=== PATIENT | female | born 1985 | race Caucasian/White ===

== ENCOUNTER 2022-12-29 17:19 | Emergency (ER) | payer OTHER ==
[~2022-12-29] VITALS: Ht 170.2 cm; Wt 119.3 kg
[~2022-12-29 17:19] MED LIST: ACETAMINOPHEN-1 EAC1 PO; ANAPROX DS550 MG PO; BISOPROLOL FUMA10 MG PO; DIAZEPAM5 MG PO; FLUOXETINE HCL20 MG PO; IBUPROFEN800 MG PO; IRON18 MG PO; MEDI-MECLIZINE25 MG PO; MELATONIN10 M2 PO; METFORMIN HCL1000 MG PO; METOPROLOL SUCC50 MG PO; NORCO 5-325 TA1 EACH PO; NORCO 7.5-3251 EACH PO; OMEPRAZOLE20 MG PO; POTASSIUM CHLO10 MEQ PO; VITAMIN D2000 UNIT PO; XANAX0.25 MG PO; XANAX0.5 MG PO; ZITHROMAX250 MG PO
--- OUTSIDE RECORDS SUMMARY | 2022-12-29 17:27 | XMS ---
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 Care History Medical/Surgical 10/25/2017 [facility] SEEN AT [facility] 10/18/17 FOR OVARIAN CYST DISCHARGED WITH RX FOR NORCO (7.5-325) Q6P PRN PAIN #20 TABLET PATIENT HAS BEEN WORKED UP MULTIPLE PLACES FOR THIS CHRONIC CONDITION.\T\nbsp; USE CAUTION WITH NARCOTICS. Radiation 10/25/2017 [facility] HAD CAT SCAN ABD September AT [place], [place] HAD ULTRSOUND September AT [facility] DENISE DELGADILLO E.D. VIS[facility] (12 MO.) [facility] 1 [facility] 1 [facility] [place] TOTAL 7 NOTE: Visits indicate total known visits. ED/UCC VISIT TRACKING (12 MO.) 12/29/2022 17:20 [facility] TYPE: Emergency COMPLAINT: - PANIC ATTACK 07/02/2022 16:05 [facility] TYPE: Emergency DIAGNOSES: - Diarrhea, unspecified - Palpitations - Fatigue - Palpitations 05/21/2022 13:28 [facility] TYPE: Emergency DIAGNOSES: - Dizziness and giddiness - Postural orthostatic tachycardia syndrome [POTS] - Dizziness - Palpitations - Weakness 05/18/2022 00:59 [facility] TYPE: Emergency DIAGNOSES: - Diaphragmatic hernia without obstruction or gangrene - Epigastric pain - Abdominal Pain - abdominal pain bloating - Bloated 05/08/2022 10:08 [facility] TYPE: Emergency DIAGNOSES: - Chest pain, unspecified - Chest Pain - Dizziness 04/27/2022 20:41 [facility] TYPE: Emergency COMPLAINT: - CHEST PAIN - EPIGASTRIC PAIN - CHEST PAIN UNSPECIFIED - ESSENTIAL PRIMARY HYPERTENSION DIAGNOSES: 0. Chest pain, unspecified 1. Right lower quadrant pain 5. Other chest pain 6. Essential (primary) hypertension 7. Other regional intermodal truck driver (current) drug therapy 8. Personal history of nicotine dependence 04/25/2022 11:46 [facility] TYPE: Emergency COMPLAINT: - Chest Pain_DIZZINESS/CHEST PAIN - DIZZINESS AND GIDDINESS - OTHER CHEST PAIN DIAGNOSES: 0. Other chest pain 1. Precordial pain 4. Essential (primary) hypertension 5. Other regional intermodal truck driver (current) drug therapy 6. Personal history of nicotine dependence INPATIENT VISIT TRACKING (12 MO.) No inpatient visits to display in this time frame [id number]
[2022-12-29] MEDS ORDERED: DULOXETINE HCL60 MG PO ×2 (17:38→19:58)
[2022-12-29] MEDS ORDERED: OXYBUTYNIN CHLO10 MG PO (17:39)
[2022-12-29] MEDS ORDERED: TRAZODONE HCL50 MG PO (17:39)
[2022-12-29] MEDS ORDERED: LORAZEPAM0.5 MG PO (17:39)
[2022-12-29] MEDS ORDERED: PROGESTERONE100 MG PO (17:39)
[2022-12-29] MEDS ORDERED: FAMOTIDINE20 MG PO (17:40)
[2022-12-29] MEDS ORDERED: ESCITALOPRAM OX20 MG PO ×2 (17:40→19:58)
[2022-12-29] MEDS ORDERED: FLUDROCORTISON0.1 MG PO (18:45)
[2022-12-29] MEDS ORDERED: LYRICA75 MG PO (18:45)
[2022-12-29] MEDS ORDERED: PINDOLOL5 MG PO (18:45)
[2022-12-29] MEDS ORDERED: METFORMIN HCL500 M3 PO (18:46)
[2022-12-29] MEDS ORDERED: DIAZEPAM5 MG PO (19:14)
[2022-12-29 20:24] VITALS: BP 160/88
== END 2022-12-29 20:25 | disposition home or self-care (01) ==
LOC: ED 17:19
DX: F41.0 Panic disorder [episodic paroxysmal anxiety] (principal); N18.31 Chronic kidney disease, stage 3a; Z87.891 Personal history of nicotine dependence; Z91.040 Latex allergy status; Z88.8 Allergy status to other drugs, medicaments and biological substances; Z79.84 Long term (current) use of oral hypoglycemic drugs; Z79.899 Other long term (current) drug therapy
CPT/HCPCS: 96374; 99283-25; J3360

== ENCOUNTER 2023-01-09 08:27 | Emergency (ER) | payer OTHER ==
[~2023-01-09] VITALS: Ht 170.2 cm; Wt 131.7 kg
[~2023-01-09 08:27] MED LIST changes: +DULOXETINE HCL60 MG PO; +ESCITALOPRAM OX20 MG PO; +FAMOTIDINE20 MG PO; +FLUDROCORTISON0.1 MG PO; +LORAZEPAM0.5 MG PO; +LYRICA75 MG PO; +METFORMIN HCL500 M3 PO; +OXYBUTYNIN CHLO10 MG PO; +PINDOLOL5 MG PO; +PROGESTERONE100 MG PO; +TRAZODONE HCL50 MG PO
--- OUTSIDE RECORDS SUMMARY | 2023-01-09 08:31 | XMS ---
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 Care History Radiation 10/25/2017 [facility] HAD CAT SCAN ABD September AT [place], [place] HAD ULTRSOUND September AT [facility] [place], [place] Medical/Surgical 10/25/2017 [facility] SEEN AT [facility] 10/18/17 FOR OVARIAN CYST DISCHARGED WITH RX FOR NORCO (7.5-325) Q6P PRN PAIN #20 TABLET PATIENT HAS BEEN WORKED UP MULTIPLE PLACES FOR THIS CHRONIC CONDITION.\T\nbsp; USE CAUTION WITH NARCOTICS. E.D. VISIT COUNT (12 MO.) 3 [facility] 2 [facility] [place] 2 [facility] [place] 1 [facility] [place] TOTAL 8 NOTE: Visits indicate total known visits. ED/UCC VISIT TRACKING (12 MO.) 01/09/2023 08:27 [facility] TYPE: Emergency COMPLAINT: - CHEST PAIN, NAUSEA, L ARM NUMBNESS 12/29/2022 17:20 [facility] TYPE: Emergency COMPLAINT: - PANIC ATTACK DIAGNOSES: - Allergy status to other drugs, medicaments and biological substances - Anxiety disorder, unspecified - Chronic kidney disease, stage 3a - Latex allergy status - half-way (current) use of oral hypoglycemic drugs - Other prison (current) drug therapy - Panic disorder [episodic paroxysmal anxiety] - Personal history of nicotine dependence 07/02/2022 16:05 [facility] TYPE: Emergency DIAGNOSES: - Diarrhea, unspecified - Palpitations - Fatigue - Palpitations 05/21/2022 13:28 [facility] TYPE: Emergency DIAGNOSES: - Dizziness and giddiness - Postural orthostatic tachycardia syndrome [POTS] - Dizziness - Palpitations - Weakness 05/18/2022 00:59 [facility] [place] TYPE: Emergency DIAGNOSES: - Diaphragmatic hernia without obstruction or gangrene - Epigastric pain - Abdominal Pain - abdominal pain bloating - Bloated 05/08/2022 10:08 [facility] TYPE: Emergency DIAGNOSES: - Chest pain, unspecified - Chest Pain - Dizziness 04/27/2022 20[facility] TYPE: Emergency COMPLAINT: - CHEST PAIN - EPIGASTRIC PAIN - CHEST PAIN UNSPECIFIED - ESSENTIAL PRIMARY HYPERTENSION DIAGNOSES: 0. Chest pain, unspecified 1. Right lower quadrant pain 5. Other chest pain 6. Essential (primary) hypertension 7. Other termite treater helper (current) drug therapy 8. Personal history of nicotine dependence 04/25/2022 11:46 [facility] TYPE: Emergency COMPLAINT: - Chest Pain_DIZZINESS/CHEST PAIN - DIZZINESS AND GIDDINESS - OTHER CHEST PAIN DIAGNOSES: 0. Other chest pain 1. Precordial pain 4. Essential (primary) hypertension 5. Other prison (current) drug therapy 6. Personal history of nicotine dependence INPATIENT VISIT TRACKING (12 MO.) No inpatient visits to display in this time frame [email or web address]
[2023-01-09 08:48] LABS: BASOPHILS 2.2 % (0-2); EOSINOPHILS 1.8 % (0-6); HEMATOCRIT 39.8 % (35.0-50.0); HEMOGLOBIN 13.2 g/dL (12.0-18.0); LYMPHOCYTES 43.5 % (24-44); MCH 27.1 (27-36); MCHC 33.2 g/dl (30-36); MCV 81.8 fl (81-99); MONOCYTES 5.2 % (0-12); NEUTROPHILS 47.3 % (39-80); PLATELET COUNT 339 K/uL (140-440); RBC 4.86 M/ul (4.3-5.7); RDW 14.5 (10.5-15.0)
[2023-01-09 08:59] LABS: ALBUMIN 3.9 g/dL (3.4-5.0); ALBUMIN/GLOBULIN RATIO 1.34 (1.1-2.4); ALKALINE PHOSPHATASE 105 U/L (46-116); ALT (SGPT) 37 U/L (14-59); ANION GAP 14.5 (7-21); AST (SGOT) 17 U/L (15-37); BILIRUBIN, TOTAL 0.6 ng/dL (0.2-1.0); CARBON DIOXIDE 26 mmol/L (21-32); CHLORIDE 103 mmol/L (98-107); CREATININE, SERUM 1.11 mg/dL (0.55-1.02); GLOMERULAR FILTRATION RATE,EST 66 mL/min (>60); POTASSIUM 3.5 mmol/L (3.5-5.1); PROTEIN, TOTAL 6.8 g/dL (6.4-8.2); UREA NITROGEN 8 mg/dL (7-18)
[2023-01-09] MEDS ORDERED: ATIVAN1 MG PO (12:14)
[2023-01-09 12:27] VITALS: BP 147/90
--- NOTE | 2023-01-09 22:35 | EKG ---
[facility] [address] [facility] [place] [address] Signed Normal sinus rhythm Possible Anterior infarct , age undetermined Abnormal ECG No previous ECGs available Confirmed by Gaetano Reardon MD () on 01/09/2023 10:35:20 PM Electronically Signed By: GAETANO REARDON MD 01/09/232234 PATIENT NAME: ELIZABETH CISSE Electrocardiogram DATE OF : 85 PHYSICIAN: GAETANO REARDON MD REPORT #: [id number] REPORT IS CONFIDENTIAL AND NOT TO BE RELEASED WITHOUT AUTHORIZATION
== END 2023-01-09 12:31 | disposition home or self-care (01) ==
LOC: ED 08:27
PROVIDERS: Emergency Medicine
DX: R07.89 Other chest pain (principal); F41.9 Anxiety disorder, unspecified; M54.2 Cervicalgia; M79.602 Pain in left arm; J45.909 Unspecified asthma, uncomplicated; N18.31 Chronic kidney disease, stage 3a; Z79.84 Long term (current) use of oral hypoglycemic drugs; Z79.899 Other long term (current) drug therapy; Z88.1 Allergy status to other antibiotic agents; Z91.040 Latex allergy status
CPT/HCPCS: 36415; 71045; 80053; 83690; 84484; 85025; 93005; 93010; J1100; J1885; J2060

== ENCOUNTER 2023-02-23 23:53 | Emergency (ER) | payer OTHER ==
[~2023-02-23] VITALS: Ht 170.2 cm; Wt 128.0 kg
[~2023-02-23 23:53] MED LIST changes: +ATIVAN1 MG PO
--- OUTSIDE RECORDS SUMMARY | 2023-02-23 23:57 | XMS ---
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 \F\ PERFORMANCE HOME MEDICAL PHONE: [phone] [facility] Internal Medicine [facility] PHONE: [phone] [facility] PHONE: [phone] BERNICE LUEVANO Urology [facility] PHONE: [phone] Nanette has no Care Guidelines for this patient. Care History Medical/Surgical 10/25/2017 [facility] SEEN AT [facility] 10/18/17 FOR OVARIAN CYST DISCHARGED WITH RX FOR NORCO (7.5-325) Q6P PRN PAIN #20 TABLET PATIENT HAS BEEN WORKED UP MULTIPLE PLACES FOR THIS CHRONIC CONDITION.\T\nbsp; USE CAUTION WITH NARCOTICS. Radiation 10/25/2017 [facility] HAD CAT SCAN ABD September AT [place], [place] HAD ULTRSOUND September AT [facility] DENISE DELGADILLO E.D. VISIT COUNT (12 MO.) 3 [place] [address] V[facility] [place]ares 1 [facility] [place] TOTAL 9 NOTE: Visits indicate total known visits. ED/UCC VISIT TRACKING (12 MO.) 02/23/2023 23:54 [facility] TYPE: Emergency COMPLAINT: - ANXIETY, N/V/D 01/09/2023 08:27 [facility] TYPE: Emergency COMPLAINT: - CHEST PAIN, NAUSEA, L ARM NUMBNESS DIAGNOSES: - Allergy status to other antibiotic agents - Anxiety disorder, unspecified - Cervicalgia - Chest pain, unspecified - Chronic kidney disease, stage 3a - Latex allergy status - [facility] (current) use of oral hypoglycemic drugs - Other chest pain - Other jail (current) drug therapy - Pain in left arm - Unspecified asthma, uncomplicated 12/29/2022 17:20 [facility] TYPE: Emergency COMPLAINT: - PANIC ATTACK DIAGNOSES: - Allergy status to other drugs, medicaments and biological substances - Anxiety disorder, unspecified - Chronic kidney disease, stage 3a - Latex allergy status - 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 TYPE: Emergency DIAGNOSES: - Diarrhea, unspecified - Palpitations - Fatigue - Palpitations 05/21/2022 13:28 [facility] TYPE: Emergency DIAGNOSES: - Dizziness and giddiness - Postural orthostatic tachycardia syndrome [POTS] - Dizziness - Palpitations - Weakness 05/18/2022 00:59 [facility] [place] TYPE: Emergency DIAGNOSES: - Diaphragmatic hernia without obstruction or gangrene - Epigastric pain - Abdominal Pain - abdominal pain bloating - Bloated 05/08/2022 10:08 [facility] TYPE: Emergency DIAGNOSES: - Chest pain, unspecified - Chest Pain - Dizziness 04/27/2022 20:41 [facility] TYPE: Emergency COMPLAINT: - CHEST PAIN - EPIGASTRIC PAIN - CHEST PAIN UNSPECIFIED - ESSENTIAL PRIMARY HYPERTENSION DIAGNOSES: 0. Chest pain, unspecified 1. Right lower quadrant pain 5. Other chest pain 6. Essential (primary) hypertension 7. Other terminal superintendent (current) drug therapy 8. Personal history of nicotine dependence 04/25/2022 11:46 [facility] TYPE: Emergency COMPLAINT: - Chest Pain_DIZZINESS/CHEST PAIN - DIZZINESS AND GIDDINESS - OTHER CHEST PAIN DIAGNOSES: 0. Other chest pain 1. Precordial pain 4. Essential (primary) hypertension 5. Other terminal superintendent (current) drug therapy 6. Personal history of nicotine dependence INPATIENT VISIT TRACKING (12 MO.) No inpatient visits to display in this time frame [id number]
[2023-02-24 00:29] LABS: BASOPHILS 1.3 % (0-2); EOSINOPHILS 1.1 % (0-6); HEMATOCRIT 39.9 % (35.0-50.0); LYMPHOCYTES 43.5 % (24-44); MCH 26.5 (27-36); MCHC 32.5 g/dl (30-36); MCV 81.6 fl (81-99); MONOCYTES 6.5 % (0-12); NEUTROPHILS 47.6 % (39-80); PLATELET COUNT 324 K/uL (140-440); RBC 4.89 M/ul (4.3-5.7); RDW 15.3 (10.5-15.0)
[2023-02-24 00:43] LABS: ALBUMIN 2.3 g/dL (3.4-5.0); ALBUMIN/GLOBULIN RATIO 0.49 (1.1-2.4); ANION GAP 15.2 (7-21); BILIRUBIN, TOTAL 0.4 ng/dL (0.2-1.0); BUN/CREATININE RATIO 7.25 (6.0-28.6); CALCIUM 8.7 mg/dL (8.5-10.1); CREATININE, SERUM 1.24 mg/dL (0.55-1.02); MAGNESIUM 2.1 mg/dL (1.8-2.4); POTASSIUM 3.2 mmol/L (3.5-5.1)
[2023-02-24] MEDS ORDERED: CYCLOBENZAPRINE10 MG PO (01:25)
[2023-02-24 02:15] VITALS: BP 122/74
== END 2023-02-24 02:15 | disposition home or self-care (01) ==
LOC: ED 23:53
PROVIDERS: Family Medicine
DX: F41.0 Panic disorder [episodic paroxysmal anxiety] (principal); R53.1 Weakness; J45.909 Unspecified asthma, uncomplicated; N18.31 Chronic kidney disease, stage 3a; Z87.891 Personal history of nicotine dependence; Z88.1 Allergy status to other antibiotic agents; Z91.040 Latex allergy status; Z79.899 Other long term (current) drug therapy
CPT/HCPCS: 36415; 80053; 83735; 85025; 96361; 96374; 96375; 99284-25; A9270; J1885; J2405; J3360; J7121

== ENCOUNTER 2023-05-11 13:08 | Emergency (ER) | payer OTHER ==
[~2023-05-11] VITALS: Ht 170.2 cm; Wt 127.9 kg
[~2023-05-11 13:08] MED LIST changes: +CYCLOBENZAPRINE10 MG PO; +K-TAB ER20 MEQ PO
[2023-05-11 14:25] LABS: INFLUENZA B NAA NEGATIVE (NEGATIVE); RESPIRATORY SYNCYTIAL VIR NAA NEGATIVE (NEGATIVE)
[2023-05-11 14:29] LABS: BASOPHILS 0.4 % (0-2); HEMATOCRIT 35.4 % (35.0-50.0); HEMOGLOBIN 11.7 g/dL (12.0-18.0); LYMPHOCYTES 13.5 % (24-44); MCH 25.9 (27-36); MCHC 33.1 g/dl (30-36); MCV 78.1 fl (81-99); MONOCYTES 6.4 % (0-12); NEUTROPHILS 78.7 % (39-80); PLATELET COUNT 336 K/uL (140-440); RBC 4.54 M/ul (4.3-5.7); RDW 15.6 (10.5-15.0)
[2023-05-11] MEDS ORDERED: KETOROLAC TROMETHAMINE 30 MG/ML VIAL IV ONE (14:45)
[2023-05-11 14:51] LABS: ALBUMIN 3.2 g/dL (3.4-5.0); ALBUMIN/GLOBULIN RATIO 0.84 (1.1-2.4); ALKALINE PHOSPHATASE 106 U/L (46-116); ALT (SGPT) 20 U/L (14-59); ANION GAP 15.5 (7-21); AST (SGOT) 13 U/L (15-37); BILIRUBIN, TOTAL 0.6 ng/dL (0.2-1.0); BUN/CREATININE RATIO 8.54 (6.0-28.6); CALCIUM 8.5 mg/dL (8.5-10.1); CARBON DIOXIDE 25 mmol/L (21-32); CHLORIDE 104 mmol/L (98-107); CREATININE, SERUM 1.17 mg/dL (0.55-1.02); GLOMERULAR FILTRATION RATE,EST 62 mL/min (>60); POTASSIUM 3.5 mmol/L (3.5-5.1); UREA NITROGEN 10 mg/dL (7-18)
[2023-05-11 15:22] VITALS: BP 143/87
--- NOTE | 2023-05-11 22:00 | EKG ---
[facility] [address] [facility] [place] [address] Signed Sinus tachycardia Possible Inferior infarct (cited on or before 09-JAN-2023) Abnormal ECG When compared with ECG of 08-MAY-2023 15:47, Vent. rate has increased BY 40 BPM Nonspecific T wave abnormality, worse in Lateral leads Confirmed by Gaetano Reardon MD () on 05/11/2023 10:00:28 PM Electronically Signed By: GAETANO REARDON MD 05/11/232199 PATIENT NAME: ELIZABETH CISSE Electrocardiogram DATE OF : 85 PHYSICIAN: GAETANO RAERDON MD REPORT #: [id number] REPORT IS CONFIDENTIAL AND NOT TO BE RELEASED WITHOUT AUTHORIZATION
== END 2023-05-11 15:25 | disposition home or self-care (01) ==
LOC: ED 13:08
PROVIDERS: Emergency Medicine
DX: R53.1 Weakness (principal); B34.9 Viral infection, unspecified; E28.2 Polycystic ovarian syndrome; G47.00 Insomnia, unspecified; F41.9 Anxiety disorder, unspecified; J45.909 Unspecified asthma, uncomplicated; G90.A Postural orthostatic tachycardia syndrome [POTS]; G47.30 Sleep apnea, unspecified; N18.31 Chronic kidney disease, stage 3a; Z91.040 Latex allergy status; Z88.1 Allergy status to other antibiotic agents; Z79.899 Other long term (current) drug therapy
CPT/HCPCS: 36415; 71045; 80053; 83880; 84484; 85025; 87502; 93005; 93010; 96374; 99285-25; J1885; U0002

== ENCOUNTER 2023-05-15 18:25 | Emergency (ER) | payer OTHER ==
[~2023-05-15] VITALS: Ht 170.2 cm; Wt 127.0 kg
[2023-05-15] MEDS ORDERED: LORAZEPAM0.5 MG PO (20:48)
[2023-05-15] MEDS ORDERED: METFORMIN HCL500 M1 PO (20:48)
[2023-05-15] MEDS ORDERED: TRAZODONE HCL100 MG PO (20:49)
[2023-05-15] MEDS ORDERED: PAROXETINE HCL20 MG PO (20:49)
[2023-05-15] MEDS ORDERED: PREGABALIN75 MG PO (20:49)
[2023-05-15] MEDS ORDERED: FAMOTIDINE20 MG PO (20:50)
[2023-05-15 21:50] LABS: INFLUENZA B NAA NEGATIVE (NEGATIVE); RESPIRATORY SYNCYTIAL VIR NAA NEGATIVE (NEGATIVE)
[2023-05-15] MEDS ORDERED: TAMIFLU75 MG PO (22:09)
[2023-05-15] MEDS ORDERED: VENTOLIN HFA18 GM INH (22:09)
[2023-05-15 22:17] VITALS: BP 127/84
== END 2023-05-15 22:19 | disposition home or self-care (01) ==
LOC: ED 18:25
PROVIDERS: Internal Medicine
DX: J10.1 Influenza due to other identified influenza virus with other respiratory manifestations (principal); J45.909 Unspecified asthma, uncomplicated; E28.2 Polycystic ovarian syndrome; G47.00 Insomnia, unspecified; F41.9 Anxiety disorder, unspecified; N18.31 Chronic kidney disease, stage 3a; Z87.891 Personal history of nicotine dependence; Z91.040 Latex allergy status; Z88.1 Allergy status to other antibiotic agents; Z79.84 Long term (current) use of oral hypoglycemic drugs; Z79.899 Other long term (current) drug therapy; Z79.890 Hormone replacement therapy
CPT/HCPCS: 71045; 87502; 99285-25; U0002

== ENCOUNTER 2023-08-17 18:08 | Emergency (ER) | payer OTHER ==
[~2023-08-17] VITALS: Ht 170.2 cm; Wt 106.9 kg
[~2023-08-17 18:08] MED LIST changes: +CLONIDINE HCL0.1 MG PO; +HYDROXYZINE HCL50 MG PO; +METFORMIN HCL500 M1 PO; +PAROXETINE HCL20 MG PO; +PREGABALIN75 MG PO; +TAMIFLU75 MG PO; +TRAZODONE HCL100 MG PO; +VENTOLIN HFA18 GM INH
[2023-08-17 19:54] LABS: BASOPHILS 0.9 % (0-2); EOSINOPHILS 3.5 % (0-6); HEMOGLOBIN 10.3 g/dL (12.0-18.0); MCH 22.9 (27-36); MCHC 32.3 g/dl (30-36); MCV 70.9 fl (81-99); MONOCYTES 5.9 % (0-12); NEUTROPHILS 47.7 % (39-80); PLATELET COUNT 354 K/uL (140-440); RBC 4.52 M/ul (4.3-5.7); RDW 18.7 (10.5-15.0)
[2023-08-17 20:14] LABS: ALBUMIN 3.5 g/dL (3.4-5.0); ANION GAP 12.6 (7-21); BILIRUBIN, TOTAL 0.4 ng/dL (0.2-1.0); BUN/CREATININE RATIO 12.61 (6.0-28.6); CALCIUM 8.8 mg/dL (8.5-10.1); CREATININE, SERUM 1.11 mg/dL (0.55-1.02); POTASSIUM 3.6 mmol/L (3.5-5.1)
[2023-08-17 21:26] LABS: BILIRUBIN, URINE NEGATIVE (negative); BLOOD/HGB, URINE NEGATIVE (Negative); KETONE, URINE NEGATIVE (Negative); LEUK ESTERASE, URINE NEGATIVE (negative); NITRITE, URINE NEGATIVE (negative)
[2023-08-17] MEDS ORDERED: FERROUS SULFAT325 M2 PO (22:01)
[2023-08-17 22:18] VITALS: BP 149/182
--- NOTE | 2023-08-18 19:12 | EKG ---
[facility] [address] [facility] [place] [address] Signed Normal sinus rhythm When compared with ECG of 11-JUN-2023 23:49, No significant change was found Confirmed by Britany Wilde ([id number]) on 08/18/2023 7:12:25 PM Electronically Signed By: BRITANY WILDE MD 08/18/231911 PATIENT NAME: ELIZABETH CISSE Electrocardiogram DATE OF : [birth year] PHYSICIAN: BRITANY WILDE MD REPORT #: [id number] REPORT IS CONFIDENTIAL AND NOT TO BE RELEASED WITHOUT AUTHORIZATION
[2023-08-21] MEDS ORDERED: AMBIEN10 MG PO (05:58)
[2023-08-21] MEDS ORDERED: MAG GLYCINATE100 MG PO (05:59)
== END 2023-08-17 22:18 | disposition home or self-care (01) ==
LOC: ED 18:08
PROVIDERS: Family Medicine
DX: R55 Syncope and collapse (principal); Z87.891 Personal history of nicotine dependence; Z91.040 Latex allergy status; Z88.8 Allergy status to other drugs, medicaments and biological substances; Z79.84 Long term (current) use of oral hypoglycemic drugs; Z79.899 Other long term (current) drug therapy
CPT/HCPCS: 36415; 70450; 80053; 81003; 85025; 93005; 93010; 99284-25

== ENCOUNTER 2023-08-26 22:14 | Emergency (ER) | payer OTHER ==
[~2023-08-26] VITALS: Ht 170.2 cm; Wt 132.5 kg
[~2023-08-26 22:14] MED LIST changes: +AMBIEN10 MG PO; +FERROUS SULFAT325 M2 PO; +MAG GLYCINATE100 MG PO
[2023-08-26] MEDS ORDERED: VITAMIN D21250 MCG PO (22:33)
[2023-08-26] MEDS ORDERED: FLUDROCORTISON0.1 MG PO (22:34)
[2023-08-26] MEDS ORDERED: VENLAFAXINE HCL75 M2 PO (22:34)
[2023-08-26] MEDS ORDERED: DIVALPROEX SODIUM 500 MG TABEC PO ONE (22:45)
[2023-08-26 23:02] LABS: BASOPHILS 2.7 % (0-2); EOSINOPHILS 3.6 % (0-6); HEMATOCRIT 31.4 % (35.0-50.0); LYMPHOCYTES 54.7 % (24-44); MCH 22.6 (27-36); MCV 70.6 fl (81-99); MONOCYTES 7.6 % (0-12); NEUTROPHILS 31.4 % (39-80); PLATELET COUNT 327 K/uL (140-440); RBC 4.44 M/ul (4.3-5.7); RDW 19.3 (10.5-15.0)
[2023-08-26 23:18] LABS: ALBUMIN 3.3 g/dL (3.4-5.0); ALBUMIN/GLOBULIN RATIO 1.1 (1.1-2.4); ANION GAP 10.4 (7-21); BILIRUBIN, TOTAL 0.3 ng/dL (0.2-1.0); BUN/CREATININE RATIO 6.77 (6.0-28.6); CALCIUM 8.4 mg/dL (8.5-10.1); CREATININE, SERUM 1.18 mg/dL (0.55-1.02); POTASSIUM 3.4 mmol/L (3.5-5.1); PROTEIN, TOTAL 6.3 g/dL (6.4-8.2)
[2023-08-26 23:26] LABS: LACTIC ACID, BLOOD 1.1 mmol/L (0.4-2.0)
[2023-08-26] MEDS ORDERED: diazePAM 10 MG/2 ML SYR IV ONE (23:45)
[2023-08-26] MEDS ORDERED: KETOROLAC TROMETHAMINE 30 MG/ML VIAL IV ONE (23:45)
[2023-08-27] MEDS ORDERED: DEPAKOTE500 MG PO (00:41)
[2023-08-27] MEDS ORDERED: CYCLOBENZAPRINE HCL 10 MG HOME.PACK PO ONE (00:45)
[2023-08-27] MEDS ORDERED: methylPREDNISolone 4 MG HOME.PACK PO ONE (00:45)
[2023-08-27 01:00] VITALS: BP 141/76
[2023-09-10] MEDS ORDERED: ONDANSETRON ODT8 MG PO (11:59)
[2023-09-10] MEDS ORDERED: PROMETHAZINE HC25 M1 PO (11:59)
[2023-09-10] MEDS ORDERED: HYDROCODON-ACE1 EA11 PO (11:59)
[2023-09-10] MEDS ORDERED: LOMOTIL TABLET1 EACH PO (11:59)
[2023-10-01] MEDS ORDERED: PYRIDIUM100 MG PO (19:19)
[2023-10-01] MEDS ORDERED: HYDROCODON-ACE1 EA10 PO (19:19)
[2023-10-01] MEDS ORDERED: CEPHALEXIN500 MG PO (19:19)
== END 2023-08-27 01:00 | disposition home or self-care (01) ==
LOC: ED 22:14
PROVIDERS: Family Medicine
DX: R55 Syncope and collapse (principal); S39.012A Strain of muscle, fascia and tendon of lower back, initial encounter; X58.XXXA Exposure to other specified factors, initial encounter; N18.31 Chronic kidney disease, stage 3a; Z87.891 Personal history of nicotine dependence; Z88.8 Allergy status to other drugs, medicaments and biological substances; Z88.1 Allergy status to other antibiotic agents; Z91.040 Latex allergy status; Z79.899 Other long term (current) drug therapy; Z79.84 Long term (current) use of oral hypoglycemic drugs
CPT/HCPCS: 36415; 72133; 80053; 83605; 85025; 86140; 87040; 96374; 96375; 99284-25; J1885; J3360; Q9967

== ENCOUNTER 2023-11-12 17:04 | Emergency (ER) | payer OTHER ==
[~2023-11-12] VITALS: Ht 170.2 cm; Wt 136.9 kg
[~2023-11-12 17:04] MED LIST changes: +CEPHALEXIN500 MG PO; +DEPAKOTE500 MG PO; +FUROSEMIDE20 MG PO; +HYDROCODON-ACE1 EA10 PO; +HYDROCODON-ACE1 EA11 PO; +KLOR-CON20 MEQ PO; +LOMOTIL TABLET1 EACH PO; +OMEPRAZOLE40 MG PO; +ONDANSETRON ODT8 MG PO; +PROMETHAZINE HC25 M1 PO; +PYRIDIUM100 MG PO; +VENLAFAXINE HCL75 M2 PO; +VITAMIN D21250 MCG PO
[2023-11-12] MEDS ORDERED: MIRTAZAPINE15 MG PO (20:16)
[2023-11-12] MEDS ORDERED: BUSPIRONE HCL15 MG PO (20:17)
[2023-11-12] MEDS ORDERED: KETOROLAC TROMETHAMINE 30 MG/ML VIAL IV ONE (20:45)
[2023-11-12 21:09] VITALS: BP 155/88
== END 2023-11-12 21:00 | disposition home or self-care (01) ==
LOC: ED 17:04
DX: M54.50 Low back pain, unspecified (principal); R60.0 Localized edema; N18.31 Chronic kidney disease, stage 3a; E66.01 Morbid (severe) obesity due to excess calories; Z87.891 Personal history of nicotine dependence; Z91.040 Latex allergy status; Z88.1 Allergy status to other antibiotic agents; Z88.8 Allergy status to other drugs, medicaments and biological substances; Z79.84 Long term (current) use of oral hypoglycemic drugs; Z79.899 Other long term (current) drug therapy
CPT/HCPCS: 80053; 80307; 83735; 83880; 84100; 84443; 85025; 99283